=== PATIENT | female | born 1960 | race Caucasian/White ===

== ENCOUNTER 2019-04-06 16:58 | Emergency (ER) | payer MEDICARE, OTHER ==
[~2019-04-06] VITALS: Ht 167.6 cm; Wt 106.6 kg
[~2019-04-06 16:58] MED LIST: ARTHRITIS MED; ARTHRITIS MEDICINE; BACTRIM DS TAB1 EACH PO; HYDROCODONE-AP1 EAC6 PO; IBUPROFEN 200200 M1 PO; INDOMETHACIN 5050 MG PO; PREDNISONE 20 M20 MG PO; THYROID MED; THYROID MEDICINE
[2019-04-06] MEDS ORDERED: PAXIL 20 MG TAB20 MG PO (17:37)
[2019-04-06] MEDS ORDERED: XARELTO10 M1 PO (17:37)
[2019-04-06] MEDS ORDERED: LORAZEPAM 0.50.5 MG PO (17:38)
[2019-04-06] MEDS ORDERED: LISINOPRIL2.5 MG PO (17:38)
[2019-04-06] MEDS ORDERED: NORCO 5-325 TA1 EAC1 PO (19:49)
[2019-04-06] MEDS ORDERED: IBUPROFEN 600600 M1 PO (19:49)
[2019-04-06 20:04] VITALS: BP 146/87
== END 2019-04-06 20:05 | disposition home or self-care (01) ==
LOC: M.ERS 16:58
DX: S42.291A Other displaced fracture of upper end of right humerus, initial encounter for closed fracture (principal); M54.2 Cervicalgia; E03.9 Hypothyroidism, unspecified; I10 Essential (primary) hypertension; M19.90 Unspecified osteoarthritis, unspecified site; Z90.710 Acquired absence of both cervix and uterus; Z85.118 Personal history of other malignant neoplasm of bronchus and lung; Z88.0 Allergy status to penicillin; W00.0XXA Fall on same level due to ice and snow, initial encounter; Y93.89 Activity, other specified; Y92.89 Other specified places as the place of occurrence of the external cause; Y99.8 Other external cause status